=== PATIENT | male | born 1950 | race Caucasian/White ===

== ENCOUNTER 2016-06-08 22:00 | Emergency (ER) ==
[2016-06-08] MEDS ORDERED: ASPIRIN PO STA (22:09)
--- NOTE | 2016-06-08 22:11 | ED EKG INTERP ---
EKG Interpretation - EKG Time of EKG reading by physician:: 22:10 EKG Read and Signed by:: Hector Desai EKG Interpretation (*Must complete 3 of following elements*): Abnormal Rate: 81 Rhythm: Ventricular-paced rhythm Attestation - Scribe Verification/Attestation Scribe:: Peter Manzo Acting as Scribe for:: Hector Desai Scribe documention review:: This chart was documented by a scribe and accurately reflects the service the provider performed and the decisions made by the provider.
[2016-06-08] MEDS ORDERED: NS 250 ML IV ONE (22:31)
--- NOTE | 2016-06-08 22:31 | PROVIDER DOCUMENTATION ---
HPI-General Adult - General Chief Complaint: General Adult Stated Complaint: de-fib fired Time Seen by Provider: 06/08/16 22:08 Allergies/Adverse Reactions: Patient Allergies Allergy/AdvReac Type Severity Reaction Status Date / Time No Known Allergies Allergy Verified 06/08/16 22:30 Home Medications: Home Medication List Medication Instructions Recorded Confirmed Last Taken Type Amiodarone [Cordarone] 200 mg PO QAM 06/08/16 06/08/16 06/08/16 09:00 History Amlodipine Besylate [Norvasc] 5 mg PO QAM 06/08/16 06/08/16 06/08/16 09:00 History Apixaban [Eliquis] 5 mg PO QAM 06/08/16 06/08/16 06/05/16 09:00 History Aspirin [Aspir-Low] 81 mg PO QAM 06/08/16 06/08/16 06/08/16 09:00 History Carvedilol 6.25 mg PO QAM 06/08/16 06/08/16 06/08/16 09:00 History Clonazepam 2 mg PO TID 06/08/16 06/08/16 06/08/16 17:00 History Cyanocobalamin (Vitamin B-12) 1 each PO QAM 06/08/16 06/08/16 06/08/16 09:00 History [Vitamin B-12] Insulin Aspart [Novolog Flexpen] 1 each SUBQ DIRECTED 06/08/16 06/08/16 Unknown History Insulin Detemir [Levemir] 30 units SUBQ BID 06/08/16 06/08/16 06/08/16 21:00 History Lamotrigine 200 mg PO BID 06/08/16 06/08/16 06/08/16 17:00 History Levothyroxine [Synthroid] 150 mcg PO QAM 06/08/16 06/08/16 06/08/16 06:00 History Metoclopramide [Reglan] 10 mg PO DIRECTED 06/08/16 06/08/16 Unknown History Metolazone 5 mg PO DIRECTED 06/08/16 06/08/16 06/08/16 16:30 History Ondansetron HCl [Zofran] 4 mg PO Q8H PRN PRN 02/25/17 02/25/17 Unknown History Potassium Chloride 40 mg PO DAILY 06/08/16 06/08/16 06/08/16 09:00 History Rabeprazole [Aciphex] 20 mg PO DAILY 06/08/16 06/08/16 06/08/16 09:00 History Ranolazine [Ranexa] 500 mg PO QAM 06/08/16 06/08/16 06/08/16 09:00 History Rosuvastatin Calcium [Crestor] 40 mg PO DAILY 06/08/16 06/08/16 06/08/16 17:00 History Sertraline HCl [Zoloft] 100 mg PO DAILY 06/08/16 06/08/16 06/08/16 17:00 History Spironolactone [Aldactone] 25 mg PO QAM 06/08/16 06/08/16 06/08/16 09:00 History Tamsulosin [Flomax] 0.4 mg PO DAILY 06/08/16 06/08/16 06/08/16 17:00 History Torsemide 150 mg PO BID 06/08/16 06/08/16 06/08/16 17:00 History - History of Present Illness -Gen Adult Nature of Presenting Problems: Pt comes in after having his defib fire x 2 [employer]. Pt has chronic afib and also states he has been out of his eliquis for the last 2 days. He denies any CP except the pain from the defib firing. Pt appears to be chronically ill and bed bound. Review of Systems - Adult - REVIEW OF SYSTEMS - ADULT Constitutional: reports: no symptoms reported. denies: chills, fever, fatique, night sweats, weight gain Eyes: reports: no symptoms reported. denies: discharge, dry eyes, decreased vision, double vision, eye pain, redness Ears, Nose, Mouth & Throat: reports: no symptoms reported. denies: ear discharge, hearing loss, tinnitus, epistaxis, sinus problem, loose teeth, mouth/ dental pain, mouth swelling, hoarseness, throat swelling Cardiovascular: reports: see HPI, other (defib firing). denies: chest pain, edema, heart murmur, irregular heart rate, orthopnea, palpitations, poor circulation, PND, syncope Respiratory: reports: no symptoms reported. denies: chronic cough, dyspnea on exertion, excessive sputum production, hemoptysis, wheezing Gastrointestinal: reports: no symptoms reported. denies: abdominal pain, hematemesis, constipation, diarrhea, nausea, poor appetite, rectal bleeding, vomiting Genitourinary: reports: no symptoms reported. denies: dysuria, discharge, frequency, flank pain, frequent UTI's, hesitency, incontinence, urinary retention, urgency Musculoskeletal: reports: no symptoms reported. denies: bone pain, back pain, frequent leg cramps, joint swelling, muscle weakness, neck pain Integumentary: reports: no symptoms reported. denies: hives, itching, nail changes, skin sores/ulcer, skin thickening Neurological: reports: no symptoms reported. denies: ataxia, dizziness/vertigo , headache/migraines, loss of balance, numbness, paresthesia, seizure, slurred speech, syncope, tremors Psychiatric: reports: no symptoms reported. denies: anxiety, anti-depressant use, alcohol/drug dependence, depression, emotional problems, insomnia, suicidal thoughts Endocrine: reports: no symptoms reported. denies: change in skin pigment, excessive sweating, cold intolerance, increased hunger, increased thirst, polyuria Hematologic/Lymphatic: reports: no symptoms reported. denies: blood clots, easy bruising, low blood count, lymphedema, swollen lymph nodes, transfusions Allergic/Immunologic: reports: no symptoms reported. denies: allergic reactions , allergic rhinitis, frequent infections, hay fever, positive PPD, urticaria All Other Systems: Reviewed and Negative Past History - Adult - PAST MEDICAL HISTORY-ADULT Review of Records: reports: Old Records Reviewed, Nursing Assessment Review, Medications Reviewed, Social history reviewed & non-contributory. Major Childhood Illnesses: reports: denies history Cardiovascular: reports: CAD, CHF, HTN, hyperlipidemia, pacemaker (with ICD) Respiratory: reports: COPD Gastrointestinal: reports: GERD Obstetrical/Gynecological: reports: denies history Genitourinary: reports: denies history Musculoskeletal: reports: denies history Neurological: reports: other (3 aneurysms on the back of the brain states havent been checked since 2009.) Psychiatric: reports: anxiety Endocrine/Immune: reports: Diabetes, thyroid disorder Other Conditions: reports: other (PH) - PRIOR SURGERIES/PROCEDURES Surgical/Procedure History: reports: appendectomy, CABG, pacemaker (bifasicular pacemaker with defibrillator placed 2 mos ago [place] due to ventricular tachycardia.) - IMMUNIZATION STATUS Childhood Immunizations: See Nurse Assessment Flu Vaccine: See Nurse Assessment - FAMILY HISTORY Family History: reviewed, not pertinent - SOCIAL HISTORY Smoking: denies Substance Use: none/never Alcohol Use Frequency: never Living Situation: family Physical Exam-General - PHYSICAL EXAM-ADULT Initial Vital Signs Reviewed: Yes - CONSTITUTIONAL General Appearance: alert, mild distress, other (chronically ill appearing) - EYES Eyes: PERRL/EOMI, pink conjunctivae - HEAD, EARS, NOSE, MOUTH & THROAT HENMT: normocephalic/atraumatic, moist mucous membranes, normal ENT inspection - NECK Neck: non-tender, full range of motion, supple Progress - PLAN OF CARE/RESULTS Progress/Plan/Lab Results: Laboratory Tests 06/08/16 06/08/16 06/08/16 22:25 22:25 22:25 WBC 9.41 RBC 5.39 Hgb 16.5 Hct 47.3 MCV 87.8 MCH 30.6 MCHC 34.9 RDW Std Deviation 17.7 H Plt Count 271 MPV 9.6 Immature Gran % (Auto) 0.7 H Neut % (Auto) 59.7 Lymph % (Auto) 22.6 Tripp % (Auto) 15.9 H Eos % (Auto) 0.7 Baso % (Auto) 0.4 Immature Gran # (Auto) 0.07 H Neut # (Auto) 5.60 Lymph # (Auto) 2.13 Tripp # (Auto) 1.50 H Eos # (Auto) 0.07 Baso # (Auto) 0.04 PT INR PTT (Actin FS) D-Dimer 0.37 Sodium 134 L Potassium 2.6 L Chloride 80 L Carbon Dioxide 39 H Anion Gap 15 BUN 45 H Creatinine 2.7 H Estimated GFR/1.73 m2 24 BUN/Creatinine Ratio 17 Glucose 129 H Calculated Osmolality 281 Calcium 9.7 Magnesium 2.6 Total Bilirubin 1.54 H AST 54 H ALT 50 H Alkaline Phosphatase 90 Creatine Kinase 48 Troponin T [id number] Pept Total Protein 7.7 Albumin 3.8 Globulin 3.9 Albumin/Globulin Ratio 1.0 06/08/16 06/08/16 06/08/16 22:25 22:25 22:25 WBC RBC Hgb Hct MCV MCH MCHC RDW Std Deviation Plt Count MPV Immature Gran % (Auto) Neut % (Auto) Lymph % (Auto) Tripp % (Auto) Eos % (Auto) Baso % (Auto) Immature Gran # (Auto) Neut # (Auto) Lymph # (Auto) Tripp # (Auto) Eos # (Auto) Baso # (Auto) PT 12.1 H INR 1.14 PTT (Actin FS) 27.0 D-Dimer Sodium Potassium Chloride Carbon Dioxide Anion Gap BUN Creatinine Estimated GFR/1.73 m2 BUN/Creatinine Ratio Glucose Calculated Osmolality Calcium Magnesium Total Bilirubin AST ALT Alkaline Phosphatase Creatine Kinase Troponin T 0.046 [id number] Pept 1850 H Total Protein Albumin Globulin Albumin/Globulin Ratio Orders Category Date Time Status Cardiac Monitoring DIRECTED Care 06/08/16 22:09 Active Saline Loc NOW Care 06/08/16 22:09 Active CHEST-1 VIEW [RAD] Stat Exams 06/08/16 22:09 Taken CBC WITH ELECTRONIC DIFF [HEME] Stat Lab 06/08/16 22:25 Completed CK PROFILE [SP CHEM] Stat Lab 06/08/16 22:25 Completed COMPREHENSIVE METABOLIC PANEL [CHEM] Stat Lab 06/08/16 22:25 Completed D-DIMER [CHEM] Stat Lab 06/08/16 22:25 Completed MAGNESIUM [CHEM] Stat Lab 06/08/16 22:25 Completed MAGNESIUM [CHEM] Stat Lab 06/08/16 23:14 Ordered PRO B-NATRIURETIC PEPTIDE Stat Lab 06/08/16 22:25 Completed PROTIME WITH INR [COAG] Stat Lab 06/08/16 22:25 Completed PTT [COAG] Stat Lab 06/08/16 22:25 Completed TROPONIN T Stat Lab 06/08/16 22:25 Completed 0.9% Sodium Chloride Inj [Ns] 250 ml Med 06/08/16 22:31 Discontinued IV 999 mls/hr Aspirin Med 06/08/16 22:09 Discontinued 325 mg PO STAT STA EKG [EKG] Stat Ther 06/08/16 22:02 Ordered Vital Signs - 24 hr 06/08/16 06/08/16 22:21 22:35 Temperature 97.7 F Pulse Rate 80 Respiratory 18 Rate Blood Pressure 89/55 O2 Sat by Pulse 98 Oximetry - XRAY 1 XRAY Study: Chest XRAY Interpretation: cardiomegaly, pacemaker in place (hcb) - CONSULTS/PCP/HOSPITALIST Notification #1 *Consult/PCP/Hospitalist*: kathryn Time Discussed: 00:41 (kathryn aware cards are not aware of patient ) Reason/Comments: v-tach defib firing Consult Disposition: Will see in ED, Admit #2 Consult: allan Reason/Comments: paged 3 never responded Departure - Departure Time of Disposition Order: 23:20 (defibrillator fired to abort a 15-20 beat run v tach x 2 fires) DIAGNOSIS: Defibrillator discharge, CKD (chronic kidney disease) stage 3, GFR 30-59 ml/min , V-tach Disposition: ADMITTED INPATIENT 09 Certified Medical Emergency: Emergent Condition: Good Additional Instructions: ED Follow Up Instructions: You have been treated by a care provider in the Emergency Department. These instructions are being provided to you so you can have an understanding of how to care for yourself upon discharge. Upon discharge from the Emergency Department, you are responsible for making arrangements for follow-up care by a physician of your choice. Take all prescribed medications as directed. Return to the Emergency Department immediately for any new or worsening symptoms. You may call the Physician Referral phone number at [phone] to obtain a list of Physicians who are taking new patients. Referrals: Laura Cortez [Primary Care Provider] - Attestation - Physician/ JOSE Attestation Patient care was provided by Advanced Practice Provider:: Yes Advanced Practice Provider:: Janet Lainez Advanced Practice Provider documentation review:: The Mid-level provider documentation, treatment plan and medical decision making was reviewed by the physician who agrees with all treatment and medical decision making by the MLP.
[2016-06-08 22:35] LABS: MANUAL DIFF NEEDED? NO
[2016-06-08 22:39] LABS: BASO% 0.4 % (0.0-0.8); EOS# 0.07 X1000 (0.0-0.7); EOS% 0.7 % (0.0-10.0); HEMATOCRIT 47.3 % (42.0-52.0); HEMOGLOBIN 16.5 g/dL (14.0-18.0); IMM GRAN# 0.07 X1000 (0.0-0.04); IMM GRAN% 0.7 % (0.0-0.5); LYMPH# 2.13 X1000 (1.2-3.4); LYMPH% 22.6 % (20.5-51.1); MCH 30.6 PG (27-31); MCHC 34.9 g/dL (33-37); MCV 87.8 FL (81-99); MONO% 15.9 % (1.7-9.3); MPV 9.6 FL (7.4-10.4); NEUT% 59.7 % (42.2-75.2); PLT 271 X1000 (130-400); RBC 5.39 XMIL (4.7-6.1)
[2016-06-08 22:49] LABS: INR 1.14; PROTIME 12.1 Seconds (9.2-11.7)
[2016-06-08 23:00] LABS: ALBUMIN 3.8 g/dL (3.5-5.0); CALCIUM 9.7 mg/dL (8.8-10.2); MAGNESIUM 2.6 mg/dL (1.5-2.7); POTASSIUM 2.6 mmol/L (3.5-5.1); TOTAL BILIRUBIN 1.54 mg/dL (0.20-1.00); TOTAL PROTEIN 7.7 g/dL (6.3-8.3)
[2016-06-09] MEDS ORDERED: CORDARONE IV ONE ×2 (00:36→00:58)
[2016-06-09] MEDS ORDERED: CORDARONE ONE (00:47)
[2016-06-09] MEDS ORDERED: CORDARONE 360 MG/D5W 200 ML IV ONE (00:48)
[2016-06-09] MEDS ORDERED: CORDARONE 540 MG in D5W 289.2 ML IV ONE (00:48)
[2016-06-09] MEDS ORDERED: CORDARONE 150 MG/D5W 100 ML IV ONE (00:48)
[2016-06-09] MEDS ORDERED: NS 500 ML IV ONE ×2 (00:48→01:22)
[2016-06-09] MEDS ORDERED: NS 500 ML ONE (00:48)
[2016-06-09] MEDS ORDERED: ELIQUIS PO ONE (00:50)
[2016-06-09] MEDS ORDERED: LIDOCAINE SYRINGE ONE (00:56)
[2016-06-09] MEDS ORDERED: NS 1,000 ML ONE (00:59)
[2016-06-09] MEDS ORDERED: VERSED ONE (01:02)
[2016-06-09] MEDS ORDERED: KETAMINE (DOSE) ONE (01:02)
--- NOTE | 2016-06-09 01:16 | ED EKG INTERP ---
EKG Interpretation - EKG Time of EKG reading by physician:: 01:06 EKG Read and Signed by:: Hector Desai EKG Interpretation (*Must complete 3 of following elements*): Abnormal Rate: 80 Rhythm: Ventricular-paced rhythm - EKG # 2 Time of EKG reading by physician:: 00:38 EKG Read and Signed by:: Hector Desai EKG Interpretation (*Must complete 3 of following elements*): Abnormal (L axis deviation; Nonspecific intraventricular block; Possible lateral infarct, age undetermined; Inferior infarct, age undetermined) Rate: 108 Rhythm: Undetermined Rhythm Attestation - Scribe Verification/Attestation Scribe:: Peter Manzo Acting as Scribe for:: Hector Desai Scribdurga documention review:: This chart was documented by a scribe and accurately reflects the service the provider performed and the decisions made by the provider.
[2016-06-09] MEDS ORDERED: NS 1,000 ML IV ONE (01:22)
[2016-06-09] MEDS ORDERED: LIDOCAINE SYRINGE IV ONE (01:22)
[2016-06-09] MEDS ORDERED: KETAMINE (DOSE) IV ONE (01:24)
[2016-06-09] MEDS ORDERED: VERSED IV ONE (01:24)
[2016-06-09 01:37] VITALS: BP 87/65
[2016-06-09] MEDS ORDERED: LEVOPHED 8 MG in D5 1/2 NS 250 ML IV SCH (02:45)
--- NOTE | 2016-06-09 09:14 | Diag Imaging Result Document ---
PROCEDURE NAME: CHEST-1 VIEW - 06/08/2016 AP PORTABLE CHEST, 06/08/2016 AT 2230 HOURS: FINDINGS: There is cardiomegaly. The lungs are better expanded than they were on 03/16/2016. The patient is rotated slightly to the right. There appears to be improvement in the atelectasis or pneumonia which was previously present in the lingula. There may still be some atelectasis in the left lower lobe. IMPRESSION: Generally improved since 03/16/2016. Cardiomegaly and left lower lobe atelectasis.
--- NOTE | 2016-06-10 07:27 | EKG Report ---
Test Performed on : 06/09/2016 00:36:45 AM Test Reason : CHANGE IN EKG Blood Pressure : / mmHG Vent. Rate : 107 BPM Atrial Rate : 107 BPM P-R Int : 144 ms QRS Dur : 224 ms QT Int : 522 ms P-R-T Axes : 046 -15 130 degrees QTc Int : 696 ms Sinus tachycardia. with premature supraventricular complexes. Nonspecific intraventricular block Possible Lateral infarct , age undetermined Inferior infarct , age undetermined Abnormal ECG When compared with ECG of 08-JUN-2016 22:08, (Unconfirmed) Sinus rhythm. has replaced Electronic ventricular pacemaker Unconfirmed Result
--- NOTE | 2016-06-10 07:57 | EKG Report ---
Test Performed on : 06/08/2016 10:08:16 PM Test Reason : cp Blood Pressure : / mmHG Vent. Rate : 081 BPM Atrial Rate : 071 BPM P-R Int : 000 ms QRS Dur : 194 ms QT Int : 630 ms P-R-T Axes : 000 -75 105 degrees QTc Int : 731 ms Ventricular-paced rhythm Abnormal ECG When compared with ECG of 05-MAR-2016 13:23, No significant change was found Unconfirmed Result
== END 2016-06-09 02:45 | disposition short-term general hospital (02) ==
LOC: ED 22:00
DX: T82.897A Other specified complication of cardiac prosthetic devices, implants and grafts, initial encounter (principal); I12.9 Hypertensive chronic kidney disease with stage 1 through stage 4 chronic kidney disease, or unspecified chronic kidney disease; N18.3 Chronic kidney disease, stage 3 (moderate); I47.2 Ventricular tachycardia; R94.31 Abnormal electrocardiogram [ECG] [EKG]; I48.2 Chronic atrial fibrillation; I25.10 Atherosclerotic heart disease of native coronary artery without angina pectoris; I50.9 Heart failure, unspecified; Z79.899 Other long term (current) drug therapy; E78.5 Hyperlipidemia, unspecified; J44.9 Chronic obstructive pulmonary disease, unspecified; E11.9 Type 2 diabetes mellitus without complications; E07.9 Disorder of thyroid, unspecified; F41.9 Anxiety disorder, unspecified; Z79.01 Long term (current) use of anticoagulants; Z79.82 Long term (current) use of aspirin; Z79.4 Long term (current) use of insulin; Z95.1 Presence of aortocoronary bypass graft; Z95.810 Presence of automatic (implantable) cardiac defibrillator
CPT/HCPCS: 71010; 80053; 82550; 83735; 83880; 84484; 85025; 85379; 85610; 85730; 93005; J0282; J2250; J7030; J7040; J7060